=== PATIENT | female | born 2000 | race Caucasian/White ===

== ENCOUNTER 2025-06-02 11:26 | Emergency (ER) | payer OTHER, SELFPAY ==
[2025-06-02 11:28] VITALS: BP 161/107
[2025-06-02 12:34] VITALS: BMI 26.8
--- NOTE | 2025-06-02 12:47 | ED.GENMED ---
History of Present Illness
General
Chief Complaint: Flank Pain
Source: patient
Exam Limitations: none
Time Seen by Provider: 06/02/25 12:46
Nursing documentation reviewed up to this point in time: agreed with
History of Present Illness
History of Present Illness:
24-year-old female with history of right kidney transplant 2013, here for abdominal and flank pain. States pain began around 10 p.m. last evening in mid upper abdomen, then generally in abdomen around 4 a.m. and evolved to a sharper, crampy,
pressure-like pain that concentrated around the right kidney area by 6 a.m. The patient reported awakening throughout the night due to abdominal discomfort and has experienced intermittent symptoms since 4 a.m. She feels 'a little' nauseous, vomited
once, small amount, 7 a.m. The patient denies fever, chills, diarrhea, or additional urinary symptoms such as burning, frequency, or urgency.
Past History
Past History
ED Past Medical History: Other (kidney failure found incidentally during routine PE in grade school)
ED Past Surgical History: Urological (Right kidney transplant 2013)
Social History
Tobacco: Non-smoker
Alcohol: None
Personal:
Living: with family
Employment: Not employed
Review of Systems
Review of Systems
Allergies reviewed?: Yes
All Other Systems: ROS reviewed and negative except as documented in HPI and ROS
Constitutional: Denies fever
ABD/GI: Reports abdominal pain, nausea and vomiting; Denies diarrhea
: Denies difficulty voiding
Phy Exam
Physical Exam
Physical Exam:
GENERAL: No acute distress. A&Ox3.
CONSTITUTIONAL: Afebrile.
EYES: clear, conjunctivae normal
ENMT: moist mucus membranes, Pharynx nl
RESPIRATORY: Regular respirations, nonlabored, lungs clear.
CARDIOVASCULAR: Regular rate and rhythm, no murmurs, no rubs.
GI: Soft, mildly tender mid to right abdomen, no rebound, hypoactive BS.
MUSCULOSKELETAL: Moves with ease. Well perfused.
SKIN: Warm, dry, pink
PSYCH: Normal mood and affect. Well kept, interactive and appropriate
NEUROLOGIC: Awake, alert and oriented. No focal neurological deficits
Course
Orders/Labs/Results
Orders:
Orders
06/02/25 12:22
Test Result ONCE
06/02/25 12:34
Complete Blood Count/With Diff Urgent
Comprehensive Metabolic Panel Urgent
HCG, Serum Qualitative Screen Urgent
Urinalysis Reflex To Culture Urgent
Date Specimen was Collected: 06/02/25
Time Specimen was Collected: 12:22
Urine Microscopic Reflex Cult Urgent
06/02/25 13:09
CT Abd/pel Without Iv Or Oral Urgent
Comment:
Reason For Exam: R flank pain (renal transplant 2013)
06/02/25 15:58
HYDROmorphone [Dilaudid] 0.5 mg IV NOW STA
06/02/25 16:03
Ondansetron Injectable [Zofran] 4 mg IV NOW STA
06/02/25 16:04
0.9% Sodium Chloride 1000 ml [Nss] 1,000 ml IV BOLUS
Ondansetron Injectable [Zofran] 4 mg .ROUTE .STK-MED ONE
06/02/25 17:45
Piperacillin/Tazo 3.375 Gram [Zosyn] 3.375 gram in 50 ml IV NOW
06/02/25 17:52
HYDROmorphone [Dilaudid] 1 mg IV NOW STA
Abnormal Lab Results
06/02/25
12:34
WBC 14.4 H 10^3/uL
(4.8-10.8)
RBC 4.19 L 10^6/uL
(4.20-5.40)
Hct 36.5 L %
(37.0-47.0)
Abs Immat Gran (auto) 0.1 H 10^3/uL
(0-0.05)
Absolute Neuts (auto) 11.8 H 10^3/uL
(1.4-6.5)
Absolute Monos (auto) 1.1 H 10^3/uL
(0.1-0.6)
Immature Gran % 0.6 H %
(0-0.5)
Neutrophils % 82.0 H %
(42.2-75.2)
Lymphocytes % 8.8 L %
(20.5-51.1)
BUN 20 H mg/dl
(7-17)
Creatinine 1.1 H mg/dL
(0.6-1.0)
Glucose 100 H mg/dl
(70-99)
Ur Occult Blood Reflex 4+ A
(Negative)
Urine RBC 11-15 A /HPF
(0-2)
Urine Albumin (Reflex) 1+ A
(Neg - Trace)
06/02/25 12:34
06/02/25 12:34
Vital Signs
Initial and Last Documented VS:
Initial Vital Signs
Temp Pulse Resp BP Pulse Ox
98.5 F 120 18 161/107 98
06/02/25 11:28 06/02/25 11:28 06/02/25 11:28 06/02/25 11:28 06/02/25 11:28
Last Documented Vital Signs
Temp Pulse Resp BP Pulse Ox
99.3 F 100 20 126/100 99
06/02/25 18:11 06/02/25 18:11 06/02/25 18:11 06/02/25 14:26 06/02/25 18:11
MDM/Problems Addressed
Differential Diagnosis Includes:
Kidney stone, UTI, pyelonephritis
MDM/Problems Addressed:
24-year-old female with history of right kidney transplant 2013, (she states in grade school hands were hurting her, PCP did basic blood work and found to be in renal failure, was on dialysis p/t her kidey transplant here for abdominal and flank
pain. States pain began around 10 p.m. last evening in mid upper abdomen, then generally in abdomen around 4 a.m. and evolved to a sharper, crampy, pressure-like pain that concentrated around the right kidney area by 6 a.m. The patient reported
awakening throughout the night due to abdominal discomfort and has experienced intermittent symptoms since 4 a.m. She feels 'a little' nauseous, vomited once, small amount, 7 a.m. The patient denies fever, chills, diarrhea, or additional urinary
symptoms such as burning, frequency, or urgency. Pain 11/16
Afebrile. NAD
Meds: Prednisone 5 mg daily
Tacrolimus 3 mg BID
Amlodipine 5 mg OD
Azathioprine 75 mg daily
CBC and, WBC 14.4
CMP: unremarkable
UA: Neg
2:20 PM: Radiologist texts that pt has acute appendicitis
Consulted Surgeon Dr. Dumont who requests pt be transferred to hospital with transplant team. Pt notified and to go to [facility]
She is stable, comfortable
Arranging for transport
3:00 PM:
Follow at [facility] Dr. Sharla Skinner and PCP Kai Valente
Spoke with [facility] transfer center and accepting MD Dr. Han who requests Dr. Dumont give him a call. Notified Dr. Dumont
3:[address] Dumont just read text to call Dr. Han
Pt informed of awaiting next communication. Medicated for pain 12/16
4:30 p.m.
Received call from [facility] transfer, pt to be transferred to [facility]
Zosyn ordered
5:45 p.m.
Pain coming back, now 12/16 re medicated
Informed that ambulance ride will be here 9 p.m. ETA
6:00 p.m.
Good relief after Dilaudid, abdomen remains soft,
Case discussed with Dr. Fischer who will assume care from this point.
*Pulse Oximetry
SaO2: 98
Oxygen Mode of Delivery: Room air
Patient hypoxic: no
*Critical Care Note
Total Time (30-74mins, 75-104mins- exclusive of procedures): Not Applicable
ED Attending Note
-
Portions of this chart may have been created with voice recognition software.� Occasional wrong word or��sound alike� substitutions may have occurred due to the inherent limitations of voice recognition software.
Discharge Plan
Departure
Patient Disposition: Acute Care Hospital
Condition: Good
Discharge Problem:
Acute appendicitis
Referrals:
UNKNOWN - PT NOT,INTERVIEWE [Family Provider]
Hospital Transfer
Other hospital: [facility]
I certify that the patient requires transfer: Yes
Discussed case with accepting physician: Emely
Reason for transfer: specialties available
Interventions
Interventions:
*General Assessment Last Done: 06/02/25 11:28
*Neglect/Abuse Screening Last Done: 06/02/25 11:28
*ED COVID-19 Vaccine History Last Done: 06/02/25 18:46
*ED Influenza Vaccine History Last Done: 06/02/25 18:46
[facility] Fall Risk Assessment Tool Last Done: 06/02/25 13:07
*Risk Screen - Suicide (C-SSRS) Last Done: 06/02/25 13:09
*Nursing Disposition Last Done: 06/02/25 20:50
UV-Mhnxcx-Lrpfbxvoqt Assessment Last Done: 06/02/25 13:07
ED-Female Genitourinary Assessment Last Done: 06/02/25 13:07
Discharge Date and Time
Discharge Date/Time: 06/02/25 20:50
Print Language: GRENADIAN
[2025-06-02 12:50] LABS: Hematocrit 36.5 % (37.0-47.0); Hemoglobin 12.5 g/dL (12.0-16.0); Mean Corp Hgb Conc. 34.2 g/dL (33.0-37.0); Mean Corpuscular Volume 87.1 fL (81.0-99.0); Nucleated Red Blood Cells % 0 %; Platelet Count 258 10^3/uL (130-400); Red Cell Dist. Width 13.0 % (11.5-14.5)
[2025-06-02 12:56] LABS: Urine Character Clear (Clear)
[2025-06-02 13:09] LABS: HCG, Serum Qualitative Screen Negative
[2025-06-02 13:14] LABS: ALT (SGPT) 12 U/L (0-35); AST (SGOT) 17 U/L (14-36); Albumin 4.2 g/dl (3.5-5.0); Alkaline Phosphatase 50 U/L (38-126); Blood Urea Nitrogen 20 mg/dl (7-17); Calcium 9.1 mg/dl (8.4-10.2); Carbon Dioxide 26 mmol/L (22-30); Chloride 102 mmol/L (98-107); Estimated Creatinine Clearance 64 ml/min; Glucose 100 mg/dl (70-99); Potassium 4.2 mmol/L (3.5-5.1); Sodium 136 mmol/L (135-145); Total Protein 7.6 g/dl (6.3-8.2); eGFR > 60.00
[2025-06-02 14:18] LABS: Urine Squamous Cell 21-25 /LPF (Few)
[2025-06-02 14:26] VITALS: BP 126/100
[2025-06-02] MEDS: DILAUDID 0.5 MG IV (16:06)
[2025-06-02] MEDS: ZOFRAN 4 MG IV (16:06)
[2025-06-02] MEDS: NSS 1000 IV (16:06)
[2025-06-02] MEDS: ZOSYN 50 IV (17:49)
[2025-06-02] MEDS: DILAUDID 1 MG IV (17:57)
== END 2025-06-02 20:50 | disposition short-term general hospital (02) ==
LOC: EMR 11:26
PROVIDERS: Emergency Medicine; EMERGENCY PHYSICIAN Student in an Organized Health Care Education/Training Program
DX: K35.80 Unspecified acute appendicitis (principal); Z79.52 Long term (current) use of systemic steroids; Z79.624 Long term (current) use of inhibitors of nucleotide synthesis; Z94.0 Kidney transplant status
CPT/HCPCS: 99285; 96374; 96375 ×2; 96376; 96361; 74176; 80053; 81003; 81015; 84703; 85025